=== PATIENT | female | born 1975 | race American Indian/Alaskan Native ===

== ENCOUNTER 2016-12-24 22:56 | Emergency (ER) | payer OTHER ==
[2016-12-25] MEDS ORDERED: MOTRIN PO ONE (00:15)
[2016-12-25 00:17] VITALS: BP 154/79
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
== END 2016-12-25 02:36 | disposition home or self-care (01) ==
LOC: ED 22:56
DX: R07.9 Chest pain, unspecified (principal); I50.9 Heart failure, unspecified; I10 Essential (primary) hypertension; V49.59XA Passenger injured in collision with other motor vehicles in traffic accident, initial encounter; Y93.89 Activity, other specified; Y99.8 Other external cause status; Y92.488 Other paved roadways as the place of occurrence of the external cause
CPT/HCPCS: 71020; 93005; 93010; 99284

== ENCOUNTER 2020-06-10 01:12 | Emergency (ER) | payer SELFPAY ==
[2020-06-10 01:42] VITALS: BP 170/113
[2020-06-10] MEDS ORDERED: ONDANSETRON 4 MG ODT TAB PO ONE (07:20)
--- NOTE | 2020-06-10 07:23 | Emergency Department Report ---
ED General Adult HPI - General Chief complaint: Nausea/Vomiting/Diarrhea Stated complaint: NAUSEA/VOMITING Time Seen by Provider: 06/10/20 07:18 Source: patient, EMS Mode of arrival: Ambulatory Limitations: No Limitations - History of Present Illness Initial comments: This is a pleasant 45-year-old female who presents to the emergency department with a chief complaint I have nausea, vomiting and epigastric abdominal pain that started 2 days ago. She has tried ingris cleo that has provided a small amount of relief. She also reports that yesterday she started to have shortness of breath. She has a past medical history of hypertension and congestive heart failure. She denies any associated fever, chills, night sweats, headache, dizziness, blurry vision, chest pain, hemoptysis, lower extremity edema, weight gain, melena, hematochezia, dizziness, blurred vision or any other associated symptoms. - Related Data Previous Rx's Medication Instructions Recorded Last Taken Type Furosemide [Lasix TAB] 40 mg PO DAILY #30 06/10/20 Unknown Rx Isosorbide Dinitrate ER 30 mg PO BID #60 06/10/20 Unknown Rx hydrALAZINE 25 mg PO TID #90 06/10/20 Unknown Rx Allergies Allergy/AdvReac Type Severity Reaction Status Date / Time No Known Allergies Allergy Unverified 07/26/15 12:42 ED Review of Systems ROS: Stated complaint: NAUSEA/VOMITING Other details as noted in HPI Comment: All other systems reviewed and negative Constitutional: denies: chills, fever Eyes: denies: eye pain, eye discharge, vision change ENT: denies: ear pain, throat pain Respiratory: see HPI, shortness of breath. denies: cough, wheezing Cardiovascular: denies: chest pain, palpitations Endocrine: no symptoms reported Gastrointestinal: as per HPI, abdominal pain, nausea, vomiting. denies: diarrhea Genitourinary: denies: urgency, dysuria, discharge Musculoskeletal: denies: back pain, joint swelling, arthralgia Skin: denies: rash, lesions Neurological: denies: headache, weakness, paresthesias Psychiatric: denies: anxiety, depression Hematological/Lymphatic: denies: easy bleeding, easy bruising ED Past Medical Hx - Past Medical History Previous Medical History?: Yes Hx Hypertension: Yes Hx Congestive Heart Failure: Yes - Surgical History Past Surgical History?: No - Social History Smoking Status: Never Smoker Substance Use Type: None - Medications Home Medications: Home Medications Medication Instructions Recorded Confirmed Last Taken Type Furosemide [Lasix TAB] 40 mg PO DAILY #30 06/10/20 Unknown Rx Isosorbide Dinitrate ER 30 mg PO BID #60 06/10/20 Unknown Rx hydrALAZINE 25 mg PO TID #90 06/10/20 Unknown Rx ED Physical Exam - General Limitations: No Limitations General appearance: alert, in no apparent distress - Head Head exam: Present: atraumatic, normocephalic - Eye Eye exam: Present: normal appearance, PERRL, EOMI Pupils: Present: normal accommodation - ENT ENT exam: Present: normal exam, normal orophraynx, mucous membranes moist - Neck Neck exam: Present: normal inspection, full ROM. Absent: tenderness, meningismus - Respiratory Respiratory exam: Present: normal lung sounds bilaterally. Absent: respiratory distress, wheezes, rales, rhonchi, stridor, chest wall tenderness - Cardiovascular Cardiovascular Exam: Present: regular rate, normal rhythm, normal heart sounds. Absent: systolic murmur, diastolic murmur, rubs, gallop - GI/Abdominal GI/Abdominal exam: Present: soft, tenderness (mild TTP To epigastrium, negative franz sign, no mcburneys point tenderness, no rebound or guarding ), normal bowel sounds. Absent: distended, guarding, rebound, rigid - Extremities Exam Extremities exam: Present: normal inspection, full ROM, normal capillary refill. Absent: tenderness, pedal edema, calf tenderness (negative kayley sign bilaterally ) - Back Exam Back exam: Present: normal inspection, full ROM. Absent: tenderness, CVA tenderness (R), CVA tenderness (L) - Neurological Exam Neurological exam: Present: alert, oriented X3, normal gait - Psychiatric Psychiatric exam: Present: normal affect, normal mood - Skin Skin exam: Present: warm, dry, intact, normal color. Absent: rash ED Course Vital Signs 06/10/20 01:40 Temperature 98.4 F Pulse Rate 100 H Respiratory 18 Rate Blood Pressure 170/113 O2 Sat by Pulse 97 Oximetry - Consultations Consultation #1: 06/10/20 17:[address] Obrien who came and evaluated the patient at bedside and suggested we admit the patient for diuresis. 06/10/20 17:55 Spoke with hospitalist physician Dr. Gaines who stated that the patient did not meet inpatient criteria and stated the patient needed to take her home medications and follow-up with a primary care doctor and acquisitions assistant. He will come and evaluate the patient at bedside. Consultation #2: 06/10/20 18:[address] Gaines came and evaluated the patient at bedside and the patient reported to him that she was out of her medications and has become symptomatic since. She went to another emergency department that filled her medications for a month but she does not have insurance and cannot afford to see her doctor. The hospital physician stated she did not meet inpatient criteria and that we could safely discharge her with a refill of her blood pressure and Lasix medications and give her outpatient resources and follow-up. ED Medical Decision Making - Lab Data Result diagrams: 06/10/20 07:31 06/10/20 07:31 Lab Results 06/10/20 06/10/20 06/10/20 Range/Units 07:31 07:31 10:06 WBC 4.6 (4.5-11.0) K/mm3 RBC 4.81 (3.65-5.03) M/mm3 Hgb 11.6 (10.1-14.3) gm/dl Hct 37.7 (30.3-42.9) % MCV 78 L (79-97) fl MCH 24 L (28-32) pg MCHC 31 (30-34) % RDW 18.1 H (13.2-15.2) % Plt Count 227 (140-440) K/mm3 Lymph % (Auto) 21.1 (13.4-35.0) % [place] % (Auto) 6.9 (0.0-7.3) % Eos % (Auto) 2.7 (0.0-4.3) % Baso % (Auto) [employer] Lymph # (Auto) 1.0 L (1.2-5.4) K/mm3 [place] # (Auto) 0.3 (0.0-0.8) K/mm3 Eos # (Auto) 0.1 (0.0-0.4) K/mm3 Baso # (Auto) 0.0 (0.0-0.1) K/mm3 Seg Neutrophils % 68.5 (40.0-70.0) % Seg Neutrophils # 3.1 (1.8-7.7) K/mm3 D-Dimer (0-234) ng/mlDDU Sodium 136 L (137-145) mmol/L Potassium 4.0 (3.6-5.0) mmol/L Chloride 103.8 (98-107) mmol/L Carbon Dioxide 22 (22-30) mmol/L Anion Gap 14 mmol/L BUN 24 H (7-17) mg/dL Creatinine 1.5 H (0.6-1.2) mg/dL Estimated GFR 46 ml/min BUN/Creatinine Ratio 16 % Glucose 118 H (65-100) mg/dL Calcium 9.0 (8.4-10.2) mg/dL Total Bilirubin 0.70 (0.1-1.2) mg/dL AST 26 (5-40) units/L ALT 32 (7-56) units/L Alkaline Phosphatase 82 (35-129) units/L Troponin T 0.046 H 0.040 H (0.00-0.029) ng/mL NT-Pro-B Natriuret Pep 3534 H (0-450) pg/mL Total Protein 6.9 (6.3-8.2) g/dL Albumin 3.7 L (3.9-5) g/dL Albumin/Globulin Ratio 1.2 % Triglycerides 60 (2-149) mg/dL Cholesterol 108 (50-199) mg/dL LDL Cholesterol Direct 64 (50-130) mg/dL HDL Cholesterol 36 L (40-59) mg/dL Cholesterol/HDL Ratio 3.00 % Lipase 41 (13-60) units/L 10/29/20 Range/Units 13:03 WBC (4.5-11.0) K/mm3 RBC (3.65-5.03) M/mm3 Hgb (10.1-14.3) gm/dl Hct (30.3-42.9) % MCV (79-97) fl MCH (28-32) pg MCHC (30-34) % RDW (13.2-15.2) % Plt Count (140-440) K/mm3 Lymph % (Auto) (13.4-35.0) % [place] % (Auto) (0.0-7.3) % Eos % (Auto) (0.0-4.3) % Baso % (Auto) Lymph # (Auto) (1.2-5.4) K/mm3 [place] # (Auto) (0.0-0.8) K/mm3 Eos # (Auto) (0.0-0.4) K/mm3 Baso # (Auto) (0.0-0.1) K/mm3 Seg Neutrophils % (40.0-70.0) % Seg Neutrophils # (1.8-7.7) K/mm3 D-Dimer 396.53 H (0-234) ng/mlDDU Sodium (137-145) mmol/L Potassium (3.6-5.0) mmol/L Chloride (98-107) mmol/L Carbon Dioxide (22-30) mmol/L Anion Gap mmol/L BUN (7-17) mg/dL Creatinine (0.6-1.2) mg/dL Estimated GFR ml/min BUN/Creatinine Ratio % Glucose (65-100) mg/dL Calcium (8.4-10.2) mg/dL Total Bilirubin (0.1-1.2) mg/dL AST (5-40) units/L ALT (7-56) units/L Alkaline Phosphatase (35-129) units/L Troponin T (0.00-0.029) ng/mL NT-Pro-B Natriuret Pep (0-450) pg/mL Total Protein (6.3-8.2) g/dL Albumin (3.9-5) g/dL Albumin/Globulin Ratio % Triglycerides (2-149) mg/dL Cholesterol (50-199) mg/dL LDL Cholesterol Direct (50-130) mg/dL HDL Cholesterol (40-59) mg/dL Cholesterol/HDL Ratio % Lipase (13-60) units/L - EKG Data -: EKG Interpreted by Or EKG shows normal: sinus rhythm Rate: normal - EKG Data Interpretation: normal EKG (Normal sinus rhythm with a ventricular rate of 90 bpm, no STEMI, normal axis, normal intervals, no acute findings.) - Radiology Data Radiology results: report reviewed Chest x-ray mild cardiomegaly with clear lungs per radiology Cat Scan Report Signed Patient: POONAM JIMENEZ MR#: [id number] : 1975 Acct:[id number] Age/Sex: 45 / F ADM Date: 06/10/20 Loc: ED Attending Dr: Ordering Physician: BEBETO SUAREZ Date of Service: 06/10/20 Procedure(s): CT angio chest Accession Number(s): [id number] cc: BEBETO SUAREZ CTA CHEST WITH CONTRAST INDICATION / CLINICAL INFORMATION: elevated D-dimer, shortness of breath. TECHNIQUE: Axial CT images were obtained through the chest after injection of 100 mL Omnipaque 300 IV contrast. 3 plane MIP and/or 3D reconstructions were produced. All CT scans at this location are performed using CT dose reduction for ALARA by means of automated exposure control. COMPARISON: None available. FINDINGS: PULMONARY ARTERIES: No pulmonary emboli. THORACIC AORTA: No significant abnormality. HEART: Moderately enlarged. No acute abnormality. CORONARY ARTERY CALCIFICATION: None. MEDIASTINUM / JUANY: No significant abnormality. PLEURA: Tiny bilateral pleural effusions. No pneumothorax. LUNGS: Mild bibasilar pulmonary edema. ADDITIONAL FINDINGS: None. UPPER ABDOMEN: No acute findings. SKELETAL STRUCTURES: No significant osseous abnormality. IMPRESSION: 1. No CT evidence for pulmonary embolism. 2. Moderate cardiomegaly with mild bibasilar pulmonary edema and tiny bilateral pleural effusions. Signer Name: Ivett Andres MD Signed: 06/10/2020 5:34 PM Workstation Name: [id number] Transcribed By: DT Dictated By: Dajuan Andres MD Electronically Authenticated By: Dajuan Andres MD Signed Date/Time: 06/10/20 2854 - Medical Decision Making Patient was given antiemetics and IV Zofran and had a large amount of urine output and felt much better. Her CT was negative for PE or aortic pathology. No signs of pneumonia, pneumothorax or other acute findings. There is mild pulmonary vascular congestion. The patient's proBNP was slightly elevated however she has not been on her medications recently which likely relate to this. Her blood pressure is also elevated but again has not been on her medications. She had a benign abdominal exam, normal LFTs and no elevated white blood cell count with a negative Franz sign making acute cholecystitis unlikely. Lipase is normal making pancreatitis unlikely. She was tolerating p.o. fluids and food making small bowel obstruction unlikely. She had no CVA tenderness, no lower abdominal tenderness, and again no white blood cell count making acute appendicitis or kidney pathology such as nephrolithiasis or pyelonephritis unlikely. Patient will be treated symptomatically as far as her abdominal pain and I will refill her medications of isosorbide dinitrate, hydralazine and Lasix. She was given outpatient cardiology and primary care follow-up. She is instructed to return to the emergency department if she deve lops any changing or worsening symptoms. She was agreeable to this plan. I discussed with the hospital physician and my ER attending and all were agreeable with this plan. - Differential Diagnosis CHF exacerbation, NSTEMI, PE Critical care attestation.: If time is entered above; I have spent that time in minutes in the direct care of this critically ill patient, excluding procedure time. ED Disposition Clinical Impression: Acute exacerbation of CHF (congestive heart failure) Qualifiers: Heart failure type: unspecified Qualified Code(s): I50.9 - Heart failure, unspecified Nausea and vomiting Qualifiers: Vomiting type: unspecified Vomiting Intractability: non-intractable Qualified Code(s): R11.2 - Nausea with vomiting, unspecified Disposition: TO HOME OR SELFCARE Is pt being admited?: No Condition: Stable Instructions: Heart Failure (ED) Prescriptions: hydrALAZINE 25 mg PO TID #90 Isosorbide Dinitrate ER 30 mg PO BID #60 Furosemide [Lasix TAB] 40 mg PO DAILY #30 Referrals: PEDRO ARAUJO MD [Primary Care Provider] - 3-5 Days [facility] [Provider Group] - 3-5 Days MARIAH SMITH MD [Staff Physician] - 3-5 Days Forms: Work/School Release Form(ED) Time of Disposition: 18:45
[2020-06-10 07:53] LABS: Eosinophils # (Auto) 0.1 K/mm3 (0.0-0.4); Eosinophils % (Auto) 2.7 % (0.0-4.3); Hematocrit 37.7 % (30.3-42.9); Hemoglobin 11.6 gm/dl (10.1-14.3); Lymphocytes % (Auto) 21.1 % (13.4-35.0); Mean Corpuscular HGB Conc 31 % (30-34); Mean Corpuscular Volume 78 fl (79-97); Monocytes # (Auto) 0.3 K/mm3 (0.0-0.8); Monocytes % (Auto) 6.9 % (0.0-7.3); Platelet Count 227 K/mm3 (140-440); Red Blood Count 4.81 M/mm3 (3.65-5.03); Red Cell Distribution Width 18.1 % (13.2-15.2)
[2020-06-10 07:59] LABS: Albumin 3.7 g/dL (3.9-5)
--- NOTE | 2020-06-10 08:17 | XRay Report ---
CHEST 2 VIEWS INDICATION: shortness of breath. COMPARISON: 12/25/2016 chest x-ray report FINDINGS: Support devices: None. Heart: Mild cardiomegaly Lungs/pleura: No acute air space or interstitial disease. No pleural effusion or pneumothorax. Additional findings: None. IMPRESSION: Mild cardiomegaly. Lungs clear. Signer Name: Doroteo Sanon Jr, MD Signed: 06/10/2020 8:12 AM Workstation Name: [id number]
--- NOTE | 2020-06-10 17:38 | Cat Scan Report ---
CTA CHEST WITH CONTRAST INDICATION / CLINICAL INFORMATION: elevated D-dimer, shortness of breath. TECHNIQUE: Axial CT images were obtained through the chest after injection of 100 mL Omnipaque 300 IV contrast. 3 plane MIP and/or 3D reconstructions were produced. All CT scans at this location are per formed using CT dose reduction for ALARA by means of automated exposure control. COMPARISON: None available. FINDINGS: PULMONARY ARTERIES: No pulmonary emboli. THORACIC AORTA: No significant abnormality. HEART: Moderately enlarged. No acute abnormality. CORONARY ARTERY CALCIFICATION: None. MEDIASTINUM / JUANY: No significant abnormality. PLEURA: Tiny bilateral pleural effusions. No pneumothorax. LUNGS: Mild bibasilar pulmonary edema. ADDITIONAL FINDINGS: None. UPPER ABDOMEN: No acute findings. SKELETAL STRUCTURES: No significant osseous abnormality. IMPRESSION: 1. No CT evidence for pulmonary embolism. 2. Moderate cardiomegaly with mild bibasilar pulmonary edema and tiny bilateral pleural effusions. Signer Name: Ivett Andres MD Signed: 06/10/2020 5:34 PM Workstation Name: [id number]
[2020-06-10] MEDS ORDERED: FUROSEMIDE 40 MG/4 ML INJ IV ONE (17:50)
== END 2020-06-10 18:50 | disposition home or self-care (01) ==
LOC: ED 01:12
DX: I50.9 Heart failure, unspecified (principal); R11.2 Nausea with vomiting, unspecified; I11.0 Hypertensive heart disease with heart failure; Z79.899 Other long term (current) drug therapy
CPT/HCPCS: 36415; 71046; 71275; 80053; 80061; 83690; 83880; 84484; 85025; 85379; 93005; 96374; 99285; J1940; Q9967; Q0162